=== PATIENT | female | born 2000 | race Two or more races ===

== ENCOUNTER 2021-01-14 16:38 | Emergency (ER) | payer MEDICAID ==
[~2021-01-14] VITALS: Ht 175.3 cm; Wt 88.5 kg
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
[2021-01-14] MEDS ORDERED: IBUPROFEN 600 MG TABLET PO ONE (18:30)
[2021-01-14] MEDS ORDERED: IBUPROFEN 600 MG TABLET ONE (18:37)
[2021-01-14] MEDS ORDERED: IBUP-1957 PO (19:07)
[2021-01-14 19:16] VITALS: BP 118/67
--- NOTE | 2021-01-14 19:16 | NUR ---
Patient discharged to home in stable condition. Written and verbal after care instructions given. Patient verbalizes understanding of instruction.
== END 2021-01-14 19:17 | disposition home or self-care (01) ==
LOC: ER 16:49
DX: S60.212A Contusion of left wrist, initial encounter (principal); S20.212A Contusion of left front wall of thorax, initial encounter; V49.49XA Driver injured in collision with other motor vehicles in traffic accident, initial encounter; Y93.89 Activity, other specified; Y92.413 State road as the place of occurrence of the external cause; Y99.8 Other external cause status
CPT/HCPCS: 71046; 73110